=== PATIENT | female | born 1990 | race Caucasian/White ===

== ENCOUNTER → 2019-07-27 | Outpatient (CLI) | payer OTHER | LOC: LAB.O 15:46 | PROVIDERS: ATTEND Nurse Practitioner Family | DX: E78.5 Hyperlipidemia, unspecified (principal); E06.3 Autoimmune thyroiditis ==

== ENCOUNTER → 2020-03-13 | Outpatient (CLI) | payer OTHER | LOC: LAB.O 16:53 | PROVIDERS: ATTEND Nurse Practitioner Family | DX: E06.3 Autoimmune thyroiditis (principal) ==